=== PATIENT | male | born 1985 | race Caucasian/White ===

== ENCOUNTER 2018-02-02 11:59 | Emergency (ER) | payer OTHER, SELFPAY ==
[2018-02-02] VITALS (20 sets, daily range): BP systolic 132–164; BP diastolic 81–102; PULSE 90–111; RESP 13–36; TEMP 36.4; O2SAT 82–98
--- NOTE | 2018-02-02 12:06 | ED.GENADUL_ITS ---
Discharge Plan Disposition Patient Disposition: HOME Condition: Improving Discharge Details Chief Complaint: Chest Pain Clinical Impression: Panic attack as reaction to stress Primary Care Provider: None,None ED Provider: Armando Nava Home Meds and New Rx's Prescriptions: No Action No Known Home Meds RF: 0 Discharge Instructions Instructions: Panic Attack (ED) Additional Instructions: Return to the emergency department immediately for any new or worsening signs or symptoms. Otherwise it is recommended that when you return home that you establish a primary care provider to further evaluate need of long-term medication for anxiety. Stand Alone Forms: Work Release Referrals: Primary Care Provider [Outside] Medical Decision Making <Armando Nava NP - Last Filed: 02/02/18 14:21> Patient presenting to the emergency department for chief complaint of chest pain. Patient states right-sided chest pressure that is dull in nature that occurred today while driving. Patient states that he has been under significant amount of stress and has had panic and anxiety attacks in the past that it felt similar in nature. Patient denies any irregular heartbeats or palpitations but does state that his heart was beating fast. Patient has presented to the emergency department previously for this. Patient is from the [facility] and does not have a local primary care provider and was here in the area for work. Physical exam is unremarkable except for tachycardia heard on examination. Plan to check labs, TSH, and troponin due to symptoms starting approximately 3 hours prior to arrival. Differential diagnosis to include anxiety panic attack, thyroid abnormality, electrolyte/dehydration, ACS while doubtful. also performing radiological imaging of the chest to rule out any pulmonary nature but feel that symptoms are more consistent with panic/anxiety so plan to give Ativan pending results. Patient can 0.5mg and will reassess. Reassessed after approximately 30 minutes and pending results and still having some level of anxiety and tachycardia. Given an additional 0.5 mg of Ativan. After review of results which are non-worrisome and nondiagnostic and no acute findings on radiological imaging of the chest patient was again reassessed and states that he is overall improving but continuing in mild chest tightness. Plan to give additional 0.5 mg of Ativan for a total of 1.5 mg along with a liter of IV fluids. Of notation is that patient continually looks at residential monitor and when no one is present in the room it appears that patient's heart rate does decrease into the 90s but as soon as someone enters the room his heart rate goes into the low 100s again. Instructed staff genetic counselor to disconnect patient from monitor given anxiety provoking nature that I feel is contributing to patient's symptom. Patient reassessed after 1 L of fluids and additional Ativan and states that he feels better. Physical exam does show some mild tachycardia but overall patient states improvement of symptoms and very minimal discomfort or tightness noted at this time. Patient does state heavy alcohol abuse with reported 6 beers per evening. Patient denies any daytime drinking so I doubt withdrawal type symptoms but this is considered at this time. Patient strongly encouraged to establish primary care provider when he returns home to the [facility] and to return to the emergency department for any new or significant worsening of symptoms. Patient otherwise appears stable with improvement of overall symptoms I do feel that he is safe to be discharged. <Evin Jarquin MD - Last Filed: 02/02/18 12:08> ECG Data Attestation: I personally reviewed and interpreted this ECG (s) as follows: Prior ECG tracings: not available for review Interpretation: sinus rhythm, rate of 109, pr 118, no acute st t wave ischemic findings HPI <Armando Nava NP - Last Filed: 02/02/18 14:21> General Mode of arrival: ambulatory . Date/Time Provider Initiated Documentation: 02/02/18 12:02 . Limitations to Documentation: no limitations . Information obtained by: patient and RN notes reviewed . History of Present Illness 32 year old M presents to the emergency department with the chief complaint of Chest pain, described as moderate and similar to prior episodes, with intensity rated at 7. Quality is described as dull (pressure), and is localized to the chest and right. Patient reports no radiation. Patient started experiencing this hour(s) (3) and it has been constant. No relieving factors improve symptom(s), No exacerbating factors reported . Patient notes no other symptoms.. Patient did receive the following treatments prior to arrival, none Related Data Home Medications Medication Instructions Recorded Confirmed Unknown [No Known Home Meds] 02/02/18 02/02/18 Allergies Allergy/AdvReac Type Severity Reaction Status Date / Time amoxicillin Allergy Unknown as child Unverified 02/02/18 12:11 Penicillins Allergy Unknown as child Unverified 02/02/18 12:11 Review of Systems <Armando Nava NP - Last Filed: 02/02/18 14:21> Constitutional Denies body ache(s), Denies chills and Denies fever(s) Cardiovascular Reports chest pain, Reports rapid heart rate, Denies pedal edema, Denies palpitations and Reports dyspnea Respiratory Denies cough, Denies pain on inspiration and Reports dyspnea Gastrointestinal Denies abdominal pain, Denies nausea and Denies vomiting Integumentary/Breasts Denies rash Neurologic Denies confusion and Denies sensory deficit Psychiatric Denies confusion Endocrine Denies palpitations Exam <Armando Nava NP - Last Filed: 02/02/18 14:21> Const General: cooperative, no acute distress and not ill appearing Orientation: alert, awake and oriented x3 HENMT Mouth: moist mucous membranes Neck Neck: normal visual inspection, full ROM and supple Thyroid: thyroid normal Resp Effort & Inspection: normal respiratory effort, able to speak in complete sentences and no respiratory distress Auscultation: clear to auscultation bilaterally Cardio Rate: tachycardic Rhythm: regular rhythm Heart Sounds: S1 normal, S2 normal, no click, no gallops, no murmurs and no rubs Bruits: no abdominal aortic bruits and no carotid bruits Pulses: radial pulses present Skin General skin exam: no rashes or lesions noted Neuro General: alert, awake, oriented x3, moves all extremities and no focal motor deficits Sensory Exam: no sensory deficits noted
--- NOTE | 2018-02-02 12:18 | DI.RAD_ITS ---
SYMPTOMS/DIAGNOSIS: CHEST PAIN CHEST X-RAY, PA AND LATERAL: No priors. The heart is normal in size. The lungs are clear. The mediastinal structures and pleura appear intact. IMPRESSION: Normal chest.
[2018-02-02 12:27] LABS: Abs Immature Grans 0.01 k/cumm (0.0-0.09); Absolute Basophil Count 0.03 k/cumm (0.0-0.2); Absolute Eosinophil Count 0.06 k/cumm (0.0-0.7); Absolute Lymphocyte Count 1.95 k/cumm (1.2-3.4); Absolute Monocyte Count 0.56 k/cumm (0.11-0.7); Absolute Neutrophil Count 5.12 k/cumm (1.2-6.7); Basophils % 0.4; Eosinophils % 0.8; HCT 43.5 % (40.0-50.0); HGB 15.2 g/dL (13.5-17.5); Immature Grans % 0.1; Lymphocytes % 25.2; Mean Corp. HGB Concentration 34.9 g/dL (32.0-36.0); Mean Corpuscular Hemoglobin 33.6 pg (27.0-33.0); Mean Platelet Volume 9.9 fL (8.0-11.0); Monocytes % 7.2; Neutrophils % 66.3; Platelet Count 267 x1000/uL (130-400); RBC 4.53 m/cumm (4.50-6.00); RBC Distribution Width 11.5 % (11.8-14.1); White Blood Cell Count 7.73 k/cumm (4.4-10.8)
[2018-02-02] MEDS: LORazepam 2 MG/ML VIAL 0.5 MG IVP ×3 (12:38→13:29)
[2018-02-02 12:52] LABS: ALT 25 U/L (12-78); AST 20 U/L (15-37); Albumin 4.5 g/dL (3.4-5.0); Alkaline Phosphatase 60 U/L (46-116); Anion Gap 11.4 mmol/L (3-11); BUN 11 mg/dL (7-18); Bilirubin, Total 1.5 mg/dL (0.2-1.0); CO2 28.6 mmol/L (21.0-32.0); CREATININE 1.12 mg/dL (0.70-1.30); Calcium 9.1 mg/dL (8.5-10.1); Chloride 97 mmol/L (98-107); Glucose 115 mg/dL (70-100); Magnesium 1.9 mg/dL (1.8-2.4); Potassium 3.6 mmol/L (3.5-5.1); Sodium 137 mmol/L (136-145); Total Protein 8.3 g/dL (6.4-8.2)
[2018-02-02 12:55] LABS: Troponin I < 0.02 ng/mL (0.00-0.06)
[2018-02-02 12:56] LABS: TSH (W/Ref FT4) 1.05 uIU/mL (0.358-3.74)
[2018-02-02] MEDS: Normal Saline 1,000 ML 1000 ML IV (13:31)
== END 2018-02-02 14:09 | disposition home or self-care (01) ==
PROVIDERS: Emergency Provider Nurse Practitioner Family
DX: F41.0 Panic disorder [episodic paroxysmal anxiety] (principal); F43.0 Acute stress reaction; R00.0 Tachycardia, unspecified
CPT/HCPCS: 36415; 80053; 93005; 96374; 96376; 99285; 71046; 83735; 84443; 84484; 85025; 93010; 99284; J2060